=== PATIENT | female | born 1975 | race Caucasian/White ===

== ENCOUNTER 2016-08-14 12:21 | Emergency (ER) | payer MEDICAID ==
[~2016-08-14] VITALS: Ht 172.7 cm; Wt 64.1 kg
[~2016-08-14 12:21] MED LIST: ALBU18HF INH; ALPR0.25 PO; LACT1CAP37 PO; METO25TA35 PO; MULT-6 PO; OMEP20TA62 PO
[2016-08-14] MEDS ORDERED: SODIUM CHLORIDE 0.9% 1,000 ML IV ONE (14:14)
[2016-08-14] MEDS ORDERED: SODIUM CHLORIDE 0.9% 1,000ML IVBOLUS ONE (14:30)
[2016-08-14] MEDS ORDERED: KETOROLAC 30 MG/1 ML IVPush ONE (14:30)
[2016-08-14] MEDS ORDERED: SODIUM CHLORIDE FLUSH 10ML SYR IVF ONE (14:30)
[2016-08-14] MEDS ORDERED: KETOROLAC 30 MG/1 ML ONE (14:56)
[2016-08-14 14:58] LABS: ASPARTATE AMINO TRANSFERASE 13 U/L (15-37); BLOOD UREA NITROGEN 9 mg/dL (7-18)
[2016-08-14 15:04] LABS: IS PT STATUS REG ER OR PRE ER? YES
[2016-08-14] MEDS ORDERED: OMNIPAQUE 350 MG/ML, 100ML BOTTLE ONE (16:39)
[2016-08-14 17:23] VITALS: BP 120/83
== END 2016-08-14 17:26 | disposition home or self-care (01) ==
LOC: ED 13:55
DX: S09.90XA Unspecified injury of head, initial encounter (principal); R55 Syncope and collapse; R07.89 Other chest pain; J45.909 Unspecified asthma, uncomplicated; X58.XXXA Exposure to other specified factors, initial encounter; Y93.89 Activity, other specified; Y92.89 Other specified places as the place of occurrence of the external cause; Y99.8 Other external cause status
CPT/HCPCS: 36415; 71010; 71275; 80053; 84484; 84703; 85025; 85379; 93005; 96361; 96374; 99285; J1885; J7030; Q9967